=== PATIENT | female | born 1970 | race Caucasian/White ===

== ENCOUNTER 2020-12-28 08:54 | Outpatient (CLI) | payer OTHER, SELFPAY ==
--- NOTE | 2020-12-28 09:03 | MM_ITS ---
WS: [id number] BILATERAL DIGITAL SCREENING MAMMOGRAPHY WITH CAD CLINICAL INFORMATION: SCREENING HISTORY: Screening mammogram. No current complaints. Patient did not return for diagnostic mammogram in 2014. COMPARISON: 5 12,015 TECHNIQUE: Bilateral CC and MLO views. FINDINGS: Scattered fibroglandular densities bilaterally. Focal asymmetric density with irregular margins in th e upper outer right breast measuring 2.9 x 1.9 cm progressed compared to 2015 with a suspicious appea elizabeth. Increased parenchymal density. Recommend further evaluation with spot compression views and ul trasound. In addition, lobulated focal asymmetry near the 12:00 position with heterogeneous calcifications also with a suspicious appearance. Asymmetry measures 1.0 x 1.3 cm with a small satellite asymmetry measu ring 6 mm. Recommend spot magnification views and ultrasound. Benign dystrophic calcification left breast which is otherwise normal in appearance MM/[place] [id number] IMPRESSION: BI-RADS: 0-Incomplete: Need additional imaging evaluation FOLLOW UP: Need Additional Imaging RECOMMEND RIGHT DIAGNOSTIC MAMMOGRAM AND ULTRASOUND WITH ATTENTION TO THE ABOVE -DESCRIBED LESIONS.
== END 2020-12-28 08:55 | disposition home or self-care (01) ==
PROVIDERS: PCP Family Medicine; Visit Provider Family Medicine
DX: Z12.31 Encounter for screening mammogram for malignant neoplasm of breast (principal)
CPT/HCPCS: 77067

== ENCOUNTER 2022-05-16 01:00 | Outpatient (CLI) | payer OTHER, SELFPAY | END 2022-05-16 23:00 | disposition home or self-care (01) | LOC: RAD 05-22 20:46 | PROVIDERS: PCP Family Medicine; Visit Provider Family Medicine | DX: R92.8 Other abnormal and inconclusive findings on diagnostic imaging of breast (principal) | CPT/HCPCS: 80053; 80061; 83036; 85025 ==

== ENCOUNTER 2022-06-13 10:32 | Outpatient (CLI) | payer OTHER, SELFPAY ==
--- NOTE | 2022-06-13 10:42 | MM_ITS ---
WS: [id number] BILATERAL 3D TOMOSYNTHESIS DIGITAL DIAGNOSTIC MAMMOGRAPHY WITH CAD CLINICAL INFORMATION: Abnormal mammogram COMPARISON: 2020 2014 TECHNIQUE: Bilateral CC, MLO, and ML views. FINDINGS: Scattered fibroglandular densities bilaterally. Spot magnification views of the calcifications demons trate amorphous heterogeneous calcifications that were present in 2015. These have increased in numbe r and have a suspicious appearance. Recommend further evaluation with stereotactic guided biopsy. Persistent dense parenchymal tissue upper outer RIGHT breast laterally. Ultrasound is pending. ULTRASOUND BREAST RIGHT TECHNIQUE: Ultrasound right breast focused area of concern. CLINICAL INFORMATION: Abnormal mammogram FINDINGS: Ultrasound RIGHT breast upper-outer quadrant in the area of increased density. Ultrasound demonstrate s dense underlying parenchymal tissue with several small cysts. Small cysts 9, 10, and 12:00 position . Several simple cysts and a few slightly complex cysts with one or 2 septations. These have a benign appearance. Ultrasound at the 1:00 position 3 cm from the nipple in the area of heterogeneous calcifications demo nstrates a dense echogenic focus measuring 7.5 x 7.0 x 4.4 mm with suspected shadowing calcifications . Biopsy of this area will be attempted under stereotactic guidance first. If not feasible due to dep th, ultrasound-guided biopsy can be attempted. 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
== END 2022-06-13 10:33 | disposition home or self-care (01) ==
LOC: RAD 10:36
PROVIDERS: PCP Family Medicine; Visit Provider Family Medicine
DX: R92.8 Other abnormal and inconclusive findings on diagnostic imaging of breast (principal); R92.1 Mammographic calcification found on diagnostic imaging of breast
CPT/HCPCS: 76642; 77062; G0279

== ENCOUNTER 2022-07-22 12:31 | Outpatient (CLI) | payer OTHER, SELFPAY ==
--- NOTE | 2022-07-22 12:44 | MM_ITS ---
WS: [id number] STEREOTACTIC RIGHT BREAST BIOPSY WITH VACUUM ASSISTANCE HISTORY: Abnormal calcifications at 1:00. COMPARISON: 06/13/2022, 12/28/2020 Procedure, risks and complications were explained to the patient. Medications and prior radiographs a re reviewed. RIGHT breast calcifications are located. Calcifications localized to 1:00. Calcifications are targete d in the craniocaudal projection. The skin is cleansed with ChloraPrep and anesthetized with 1% buffe red lidocaine. Deeper soft tissues anesthetized with a combination of lidocaine and epinephrine. Smal l dermatome is made. Needle advanced into the RIGHT breast. Stereotactic imaging reveals appropriate positioning adjacent calcifications. Multiple vacuum-assisted core biopsies are obtained. No complica tions were encountered. Post biopsy specimen radiograph reveals numerous calcifications. Biopsy clip is placed in the cavity. Post imaging reveals good placement of the clip. No migration. Pressures held for approximately 15 minutes. No bleeding. Dressing applied. Patient discharged with n o complications. There is no bleeding. With any questions or complications patient is to return. MM/MM surgical specimen RT IMPRESSION: 1. Uncomplicated RIGHT breast stereotactic biopsy. 2. Specimen contains numerous calcifications. Pathology: Benign proliferative breast disease with multiple foci of dystrophic calcifications. No evidence for acute atypical ductal or lobular hyperplasia. No malignancy. RECOMMENDATION: Diagnostic RIGHT mammogram 6 months.
--- NOTE | 2022-07-22 12:44 | MM_ITS ---
WS: [id number] STEREOTACTIC RIGHT BREAST BIOPSY WITH VACUUM ASSISTANCE HISTORY: Abnormal calcifications at 1:00. COMPARISON: 06/13/2022, 12/28/2020 Procedure, risks and complications were explained to the patient. Medications and prior radiographs a re reviewed. RIGHT breast calcifications are located. Calcifications localized to 1:00. Calcifications are targete d in the craniocaudal projection. The skin is cleansed with ChloraPrep and anesthetized with 1% buffe red lidocaine. Deeper soft tissues anesthetized with a combination of lidocaine and epinephrine. Smal l dermatome is made. Needle advanced into the RIGHT breast. Stereotactic imaging reveals appropriate positioning adjacent calcifications. Multiple vacuum-assisted core biopsies are obtained. No complica tions were encountered. Post biopsy specimen radiograph reveals numerous calcifications. Biopsy clip is placed in the cavity. Post imaging reveals good placement of the clip. No migration. Pressures held for approximately 15 minutes. No bleeding. Dressing applied. Patient discharged with n o complications. There is no bleeding. With any questions or complications patient is to return. MM/[place] [id number] IMPRESSION: 1. Uncomplicated RIGHT breast stereotactic biopsy. 2. Specimen contains numerous calcifications. Pathology: Benign proliferative breast disease with multiple foci of dystrophic calcifications. No evidence for acute atypical ductal or lobular hyperplasia. No malignancy. RECOMMENDATION: Diagnostic RIGHT mammogram 6 months.
--- NOTE | 2022-07-22 12:44 | MM_ITS ---
WS: [id number] STEREOTACTIC RIGHT BREAST BIOPSY WITH VACUUM ASSISTANCE HISTORY: Abnormal calcifications at 1:00. COMPARISON: 06/13/2022, 12/28/2020 Procedure, risks and complications were explained to the patient. Medications and prior radiographs a re reviewed. RIGHT breast calcifications are located. Calcifications localized to 1:00. Calcifications are targete d in the craniocaudal projection. The skin is cleansed with ChloraPrep and anesthetized with 1% buffe red lidocaine. Deeper soft tissues anesthetized with a combination of lidocaine and epinephrine. Smal l dermatome is made. Needle advanced into the RIGHT breast. Stereotactic imaging reveals appropriate positioning adjacent calcifications. Multiple vacuum-assisted core biopsies are obtained. No complica tions were encountered. Post biopsy specimen radiograph reveals numerous calcifications. Biopsy clip is placed in the cavity. Post imaging reveals good placement of the clip. No migration. Pressures held for approximately 15 minutes. No bleeding. Dressing applied. Patient discharged with n o complications. There is no bleeding. With any questions or complications patient is to return. MM/MM biopsy RT vac assist [id number] IMPRESSION: 1. Uncomplicated RIGHT breast stereotactic biopsy. 2. Specimen contains numerous calcifications. Pathology: Benign proliferative breast disease with multiple foci of dystrophic calcifications. No evidence for acute atypical ductal or lobular hyperplasia. No malignancy. RECOMMENDATION: Diagnostic RIGHT mammogram 6 months.
== END 2022-07-22 12:32 | disposition home or self-care (01) ==
LOC: RAD 12:31
PROVIDERS: PCP Family Medicine; Visit Provider Family Medicine
DX: R92.1 Mammographic calcification found on diagnostic imaging of breast (principal); N60.81 Other benign mammary dysplasias of right breast; N60.21 Fibroadenosis of right breast; N60.31 Fibrosclerosis of right breast; N62 Hypertrophy of breast
CPT/HCPCS: 19081; 77065; 88305

== ENCOUNTER → 2024-01-12 13:41 | Outpatient (BNVA) | payer OTHER, SELFPAY | PROVIDERS: PCP Family Medicine; Visit Provider Family Medicine | DX: Z13.220 Encounter for screening for lipoid disorders (principal); Z51.81 Encounter for therapeutic drug level monitoring; R53.81 Other malaise; R53.83 Other fatigue; E11.9 Type 2 diabetes mellitus without complications | CPT/HCPCS: 80053; 80061; 82306; 83036; 84439; 84443; 85025 ==

== ENCOUNTER → 2024-02-23 11:31 | Outpatient (BNVA) | payer OTHER, SELFPAY | PROVIDERS: PCP Family Medicine; Visit Provider Family Medicine | DX: R30.0 Dysuria (principal) | CPT/HCPCS: 81000; 87086 ==

== ENCOUNTER → 2024-07-22 11:36 | Outpatient (BNVA) | payer OTHER, SELFPAY | PROVIDERS: PCP Family Medicine; Visit Provider Family Medicine | DX: Z13.6 Encounter for screening for cardiovascular disorders (principal); E11.9 Type 2 diabetes mellitus without complications; R51.9 Headache, unspecified; R53.81 Other malaise; R53.83 Other fatigue; M62.838 Other muscle spasm; Z51.81 Encounter for therapeutic drug level monitoring | CPT/HCPCS: 80053; 80061; 83036; 83735; 84443; 85025; 85651 ==

== ENCOUNTER 2024-08-02 10:20 | Outpatient (CLI) | payer OTHER, SELFPAY ==
--- NOTE | 2024-08-02 10:26 | XR_ITS ---
WS: [id number] XR shoulder RT min 2V* [id number] REASON FOR EXAM: Right shoulder pain FINDINGS: No fracture or focal bone lesion. Moderate narrowing of the acromioclavicular joint space with mild subchondral sclerosis and osteophytosis. The glenohumeral joint space is not well demonstrated. Likely there is mild narrowing with minimal subchondral sclerosis in the glenoid. No significant bony change in the greater biceps tuberosity. XR/XR shoulder RT min 2V* [id number] IMPRESSION: Mild to moderate osteoarthritis of the acromioclavicular joint. Minimal osteoarthritis of the glenohumeral joint. No significant rotator cuff tendon arthropathy.
== END 2024-08-02 10:21 | disposition home or self-care (01) ==
PROVIDERS: PCP Family Medicine; Visit Provider Family Medicine
DX: M19.011 Primary osteoarthritis, right shoulder (principal); M25.711 Osteophyte, right shoulder; R93.6 Abnormal findings on diagnostic imaging of limbs
CPT/HCPCS: 73030

== ENCOUNTER 2024-09-06 06:05 | Outpatient (CLI) | payer OTHER, SELFPAY ==
--- NOTE | 2024-09-06 06:30 | MR_ITS ---
WS: [id number] MRI RIGHT SHOULDER HISTORY: Right shoulder pain COMPARISON: Radiograph 08/02/2024 TECHNIQUE: Multiplanar sequences of the shoulder joint are submitted. Moderate AC joint arthritis. AC joint is narrowed with hypertrophic osteophytes. Osteophyte encroaches slightly upon the supraspinatus tendon. Downsloping of the acromion with an osteophyte encroaching upon the supraspinatus tendon. Moderate amount of fluid in the subacromial and subdeltoid bursa. No os acromion. Biceps tendon within the bicipital groove. There is some motion artifact limiting evaluation of the biceps tendon. There is a small amount of fluid within the tendon sheath. Slightly high riding humeral head. Minimal narrowing of the glenohumeral joint. No rotator cuff muscle atrophy or edema. Insertion site tear of the subscapularis tendon. There is also narrowing of the coracohumeral interval encroaching upon the subscapularis tendon with adjacent tendinopathy. Additional distal supraspinatus tendon tear involving the articular surface. This tear measures 2.3 mm. Majority of the tendon is intact with no retraction. No infraspinatus tendon tear. Axillary pouch is negative. Edema within the coracohumeral ligament. In part this is due to motion. No labral tear. MR/MR shoulder RT wo con* [id number] IMPRESSION: 1. Moderate AC joint arthritis. 2. Mild subacromial impingement with fluid in the subacromial-subdeltoid bursa . 3. Distal insertion site tear of the subscapularis tendon without retraction. There is additional moderate tendinopathy in the more proximal subscapularis te ndon. 4. Edema within the coracohumeral ligament. 5. Partial, small 2.3 mm tear involving the articular surface of the supraspin atus tendon. 6. Small amount of fluid in the biceps tendon sheath. 7. Moderate narrowing of the coracohumeral interval.
== END 2024-09-06 06:06 | disposition home or self-care (01) ==
PROVIDERS: PCP Family Medicine; Visit Provider Family Medicine
DX: M75.41 Impingement syndrome of right shoulder (principal); M19.011 Primary osteoarthritis, right shoulder; S46.811A Strain of other muscles, fascia and tendons at shoulder and upper arm level, right arm, initial encounter; X58.XXXA Exposure to other specified factors, initial encounter; M67.813 Other specified disorders of tendon, right shoulder; R93.7 Abnormal findings on diagnostic imaging of other parts of musculoskeletal system; M75.101 Unspecified rotator cuff tear or rupture of right shoulder, not specified as traumatic; M25.711 Osteophyte, right shoulder
CPT/HCPCS: 73221

== ENCOUNTER → 2024-09-26 13:25 | Outpatient (BNVA) | payer OTHER, SELFPAY | PROVIDERS: PCP Family Medicine; Visit Provider Specialist | DX: M75.01 Adhesive capsulitis of right shoulder (principal); M25.511 Pain in right shoulder; R93.6 Abnormal findings on diagnostic imaging of limbs | CPT/HCPCS: 73030 ==